=== PATIENT | male | born 1985 | race Caucasian/White ===

== ENCOUNTER → 2018-05-17 | Outpatient (CLI) | payer BC ==
--- NOTE | 2018-05-18 11:22 | RAD ---
FDG tumor localization scan, PET/CT, 05/17/2018: History: Abnormal CT Following IV injection of 14.2 mCi of 18 F-FDG, imaging was performed from the skull base to the proximal thighs. The noncontrast CT component was performed for attenuation correction and anatomic localization purposes rather than for primary diagnosis. The patient's blood glucose level at the time the exam was 101 MG/DL. No outside imaging is currently available for correlative purposes. Physiologic activity is evident in the neck. No hypermetabolic neck lesion is seen. There are 2 hypermetabolic right paratracheal lymph nodes. These both measure approximately 10 mm in short axis dimension. The maximum SUV is 7.8. There is also a small hypermetabolic subcarinal lymph node. There is a hypermetabolic focus at the right hilum demonstrate a maximum SUV of 9.5. This is probably due to a lymph node, although it cannot be from the hilar vessels on the nonopacified CT component. A tiny 8 mm nodule is identified in the region of the superior segment of the right lower lobe. The CT images are somewhat blurred by motion artifact. There is only faint FDG uptake in this region with a maximum SUV of 2.4, less than that of the mediastinal background activity. Normal GI tract and urinary tract activity is present in the abdomen and pelvis. No hypermetabolic abdominal or pelvic lesion is seen. The hepatic uptake is heterogeneous, as is often the case. Incidental CT findings include the presence of generally decreased density in the liver compatible with hepatic steatosis. IMPRESSION: 1. Mild hypermetabolic adenopathy at the right hilum and in the mediastinum. Diagnostic considerations include lymphoma, sarcoidosis, metastatic disease or an infectious etiology. 2. Tiny right lower lobe pulmonary nodule demonstrating only faint FDG uptake. The lack of demonstrable avid uptake may be due to its small size.
== END | disposition home or self-care (01) ==
LOC: PETSC 11:42
PROVIDERS: ATTEND Physician Assistant Medical
DX: R22.2 Localized swelling, mass and lump, trunk (principal)
CPT/HCPCS: 78815; A9552

== ENCOUNTER 2020-02-05 09:46 | Emergency (ER) | payer BC ==
[~2020-02-05] VITALS: Ht 185.4 cm; Wt 87.2 kg
[2020-02-05] MEDS ORDERED: guaiFENesin DM 200MG/20MG 10 ML SYRUP PO ONE (10:00)
[2020-02-05] MEDS ORDERED: BENZONATATE 100 MG CAPSULE. PO ONE (10:00)
[2020-02-05] MEDS ORDERED: DEXAMETHASONE 4 MG TABLET ONE (10:39)
--- NOTE | 2020-02-05 10:52 | EKG ---
[facility] [address] [place] [address] Test Date: 2020-02-05 Test Time: 10:03:21 Pat Name: GREG GALLEGOS Department: Room: Gender: M [employer]: : 1985 Requested By: MANUEL RODRIGUEZ Order Number: [id number] Reading MD: Measurements Intervals [place] Rate: 80 P: 41 CO: 152 QRS: 34 QRSD: 84 T: 74 QT: 348 QTc: 405 Interpretive Statements SINUS RHYTHM R-S TRANSITION ZONE IN V LEADS DISPLACED TO THE RIGHT OTHERWISE NORMAL ECG RI6.02 No previous ECG available for comparison
[2020-02-05 11:04] LABS: BASO % 0 % (0-3); EOS % 1 % (0-3); HEMATOCRIT 45.2 % (39.0-53.0); HEMOGLOBIN 15.4 g/dL (13.0-17.5); LYMPH # 1.3 x10^3/uL (1.0-4.8); LYMPH % 29 % (24-48); MEAN CORPUSCULAR HEMOGLOBIN 31 pg (25-35); MEAN CORPUSCULAR HGB CONC 34 g/dL (31-37); MEAN CORPUSCULAR VOLUME 90 fL (79-100); MONO # 0.3 x10^3/uL (0.0-1.1); MONO % 8 % (0-9); NEUT # 2.7 x10^3/uL (1.8-7.7); NEUT % 61 % (31-73); PLATELET COUNT 169 x10^3/uL (140-400); RED BLOOD COUNT 5.03 x10^6/uL (4.30-5.70); RED CELL DISTRIBUTION WIDTH 14.4 % (11.5-14.5); WHITE BLOOD COUNT 4.3 x10^3/uL (4.0-11.0)
[2020-02-05 11:06] LABS: CALCIUM 9.2 mg/dL (8.5-10.1); POTASSIUM 3.7 mmol/L (3.5-5.1)
--- NOTE | 2020-02-05 11:09 | RAD ---
EXAM: PORTABLE CHEST 1V 02/05/2020 9:46 AM CLINICAL INDICATION: Shortness of breath, Covid positive COMPARISON: Chest radiograph 03/03/2017 TECHNIQUE: AP upright view of the chest FINDINGS: The heart and mediastinum are normal. Lungs are well-expanded and clear. No consolidation, pleural effusion, or pneumothorax. Pulmonary vascularity is normal. The thoracic skeleton is intact. There is mild gaseous distention of stomach. IMPRESSION: No acute cardiopulmonary abnormality. Electronically signed by: Carrie Carrero MD (02/05/2020 11:06 AM) [id number]
[2020-02-05 11:10] LABS: ALBUMIN 3.7 g/dL (3.4-5.0); TOTAL BILIRUBIN 0.2 mg/dL (0.2-1.0); TOTAL PROTEIN 7.3 g/dL (6.4-8.2)
--- NOTE | 2020-02-05 12:08 | PHYS DOC ---
Past Medical History Past Medical History: Asthma Past Surgical History: Other Additional Past Surgical Histo: Hiatal Hernia Smoking Status: Never Smoker Alcohol Use: Occasionally General Adult EDM: Chief Complaint: COUGH HPI: HPI: 34-year-old male past medical history of asthma, presents the ED after patient was referred here by his family practice practice doctor Dr. Chavez. Patient states "I'm coughing up my lung," with sore throat, cough, myaglias, headache with a subjective fever on Monday night. Patient reports he works in a [place] and was exposed to COVID at work. Was tested Monday for covid in [place], result came back positive today. Patient states his asthma peak flows usually 450, Monday was 350 and today dropped to 90. Patient states he was unable to speak in full sentences earlier today and was having shortness of breath with exertion-states he became dizzy when walking. Pts' called Dr. Chavez who referred pt here. Not any steroids. Takes Flovent, albuterol and Singulair. No history of hospitalizations or intubations for asthma. No h/o steroids for > 1 year. Currently c/o forceful cough and dyspnea. ROS: Denies any current fever, headache, neck stiffness, leg swelling, hemoptysis, nausea, vomiting, diarrhea, back pain, abdominal pain, rash, chest pain or pressure, syncope, earache. Review of Systems: Review of Systems: Constitutional: Denies chills. [] Eyes: Denies change in visual acuity. [] HENT: Denies nasal congestion or sore throat. [] Cardiovascular: Denies chest pain or edema. [] GI: Denies abdominal pain, nausea, vomiting, bloody stools or diarrhea. [] : Denies dysuria, hematuria Musculoskeletal: Denies back pain or joint pain. [] Integument: Denies rash. [] Neurologic: Denies headache, focal weakness or sensory changes. [] Lymphatic: Denies swollen glands. [] Psychiatric: Denies depression or anxiety. [] Heart Score: Risk Factors: Risk Factors: DM, Current or recent (<one month) smoker, HTN, HLP, family hist ory of CAD, obesity. Risk Scores: Score 0 - 3: 2.5% MACE over next 6 weeks - Discharge Home Score 4 - 6: 20.3% MACE over next 6 weeks - Admit for Clinical Observation Score 7 - 10: 72.7% MACE over next 6 weeks - Early Invasive Strategies Current Medications: Current Medications Medications (Trade) Dose Ordered Sig/Hakeem Start Time Stop Time Status Last Admin Dose Admin Benzonatate (Tessalon Perle) 100 mg 1X ONCE 02/05/20 10:00 02/05/20 10:31 DC 02/05/20 10:48 100 MG Dexamethasone (Decadron) 4 mg STK-MED ONCE 02/05/20 10:39 02/05/20 10:39 DC Guaifenesin (Robitussin Dm) 10 ml 1X ONCE 02/05/20 10:00 02/05/20 10:31 DC 02/05/20 10:48 10 ML Allergies: Allergies: Allergies Coded Allergies Type Severity Reaction Last Updated Verified amoxicillin Allergy Intermediate HIVES 02/05/20 Yes Physical Exam: PE: Constitutional: Well developed, well nourished, no acute distress, non-toxic appearance, afebrile, no tachycardia HENT: Normocephalic, atraumatic, bilateral external ears normal, oropharynx moist, no oral exudates, nose normal. [] Eyes: EOMI, conjunctiva normal, no discharge. [] Neck: Normal range of motion, no tenderness, supple, no stridor. [] Cardiovascular:Heart rate regular rhythm, no murmur [] Lungs & Thorax: Bilateral breath sounds w/faint expiratory wheezing Abdomen: Bowel sounds normal, soft, no tenderness, no masses, no pulsatile masses. [] Skin: Warm, dry, no erythema, no rash. [] Back: No tenderness, no CVA tenderness. [] Extremities: No tenderness, no cyanosis, no clubbing, ROM intact, no edema. [] Neurologic: Alert and oriented X 3, normal motor function, normal sensory function, no focal deficits noted. [] Psychologic: Affect normal, judgement normal, mood normal. [] Current Patient Data: Labs: Laboratory Tests Test 02/05/20 10:40 White Blood Count 4.3 x10^3/uL (4.0-11.0) Red Blood Count 5.03 x10^6/uL (4.30-5.70) Hemoglobin 15.4 g/dL (13.0-17.5) Hematocrit 45.2 % (39.0-53.0) Mean Corpuscular Volume 90 fL (79-100) Mean Corpuscular Hemoglobin 31 pg (25-35) Mean Corpuscular Hemoglobin Concent 34 g/dL (31-37) Red Cell Distribution Width 14.4 % (11.5-14.5) Platelet Count 169 x10^3/uL (140-400) Neutrophils (%) (Auto) 61 % (31-73) Lymphocytes (%) (Auto) 29 % (24-48) Monocytes (%) (Auto) 8 % (0-9) Eosinophils (%) (Auto) 1 % (0-3) Basophils (%) (Auto) 0 % (0-3) Neutrophils # (Auto) 2.7 x10^3/uL (1.8-7.7) Lymphocytes # (Auto) 1.3 x10^3/uL (1.0-4.8) Monocytes # (Auto) 0.3 x10^3/uL (0.0-1.1) Eosinophils # (Auto) 0.0 x10^3/uL (0.0-0.7) Basophils # (Auto) 0.0 x10^3/uL (0.0-0.2) Sodium Level 142 mmol/L (136-145) Potassium Level 3.7 mmol/L (3.5-5.1) Chloride Level 107 mmol/L (98-107) Carbon Dioxide Level 27 mmol/L (21-32) Anion Gap 8 (6-14) Blood Urea Nitrogen 21 mg/dL (8-26) Creatinine 1.0 mg/dL (0.7-1.3) Estimated GFR (Cockcroft-Gault) 85.0 BUN/Creatinine Ratio 21 (6-20) H Glucose Level 89 mg/dL (70-99) Lactic Acid Level 1.8 mmol/L (0.4-2.0) Calcium Level 9.2 mg/dL (8.5-10.1) Total Bilirubin 0.2 mg/dL (0.2-1.0) Aspartate Amino Transferase (AST) 20 U/L (15-37) Alanine Aminotransferase (ALT) 44 U/L (16-63) Alkaline Phosphatase 56 U/L (46-116) Troponin I Quantitative < 0.017 ng/mL (0.000-0.055) Total Protein 7.3 g/dL (6.4-8.2) Albumin 3.7 g/dL (3.4-5.0) Albumin/Globulin Ratio 1.0 (1.0-1.7) Laboratory Tests 02/05/20 10:40 Laboratory Tests 02/05/20 10:40 Vital Signs: Vital Signs Date Time Temp Pulse Resp B/P (MAP) Pulse Ox O2 Delivery O2 Flow Rate FiO2 02/05/20 10:49 97 116/78 (91) 98 Room Air 02/05/20 09:55 98.6 18 98.6 EKG: EKG: Sinus rhythm 80 bpm, no axis deviation, normal intervals, no T wave inversions, no ST elevations or ST depressions Radiology/Procedures: Radiology/Procedures: []IMAGING REPORT Signed PATIENT: GREG GALLEGOS ACCOUNT: [id number] : 1985 LOCATION: ER AGE: 34 SEX: M EXAM STATUS: REG ER ORD. PHYSICIAN: MANUEL RODRIGUEZ DO REASON: shortness of breath - COVID POSITIVE PROCEDURE: PORTABLE CHEST 1V EXAM: PORTABLE CHEST 1V 02/05/2020 9:46 AM CLINICAL INDICATION: Shortness of breath, Covid positive COMPARISON: Chest radiograph 03/03/2017 TECHNIQUE: AP upright view of the chest FINDINGS: The heart and mediastinum are normal. Lungs are well-expanded and clear. No consolidation, pleural effusion, or pneumothorax. Pulmonary vascularity is normal. The thoracic skeleton is intact. There is mild gaseous distention of stomach. IMPRESSION: No acute cardiopulmonary abnormality. Electronically signed by: Carrie Carrero MD (02/05/2020 11:06 AM) [id number] DICTATED and SIGNED BY: CARRIE CARRERO MD DATE: 02/05/20 1106 Impression: PERC rule 0 criteria No need for further workup, as <2% chance of PE. If no criteria are positive and clinicians pre-test probability is <15%, PERC Rule criteria are satisfied. Wells criteria, 0 points Low risk group for DVT. Unlikely according to Wells DVT studies. Course & Med Decision Making: Course & Med Decision Making Pertinent Labs and Imaging studies reviewed. (See chart for details) COVID-19 CRITERIA: The patient was evaluated during the global COVID-19 pandemic, and that diagnosis was suspected/considered upon their initial presentation. Their evaluation, treatment and testing was consistent with current guidelines for patients who present with complaints or symptoms that may be related to COVID-19 Concern for shortness of breath likely related to covid with possible asthma exacerbation, significant improvement with dexamethasone in ED-pt states "the medicine really works." Pt now speaking in full sentences, saturating 9900% on room air with no respiratory distress or accessory muscle use. Patient requesting albuterol nebulizer medication - does not need refills for albuterol inhaler, Flovent or Singulair. Will prescribe 12-day steroid taper. Patient was given very strict ED return precautions for chest pain, PE, respiratory distress or strokelike symptoms-was educated on complications of COVID. Encouraged urgent outpatient follow-up with PMD and pulmonology. Life- threatening processes were considered but are low suspicion at this time, given history and physical exam. Pt was educated on all prescription medications and adverse effects. All patient's questions were answered and pt was stable at time of discharge. Differential includes ACS, dysrhythmia, pneumothorax or hemothorax, pulmonary embolus, pneumonia, bronchoconstriction, pulmonary edema, angioedema, epiglottitis, tracheitis, Petey's angina, RPA/[employer] LENS, anaphylaxis, angioedema, cardiac tamponade or murmurs, pericarditis, myocarditis, poisoning or toxicity, sepsis or autoimmune/neurologic disease. I spoken with the patient and her caregivers. I explained the patient's condition, diagnoses and treatment plan based on the information available to me at this time. I have answered the patient and her caregiver's questions and addressed any concerns. The patient and her caregivers have a good understanding of patient's diagnosis, condition and treatment plan as can be expected at this point. Vital signs have been stable. Patient's condition is stable and appropriate for discharge from the emergency department. Patient will pursue further outpatient evaluation with primary care physician or other designated or consulting physician as outlined in the discharge instructions. The patient and/or caregivers are agreeable to this plan of care and follow-up instructions have been explained in detail. The patient and/or caregivers have received these instructions in written form and have expressed an understanding of the discharge instructions. The patient and/or caregivers are aware that any significant change of condition or worsening of symptoms should prompt immediate return to this or the closest emergency department or call to [employer] [facility] Disclaimer: Jennifer Disclaimer: This electronic medical record was generated, in whole or in part, using a voice recognition dictation system. Departure Departure Impression: Primary Impression: COVID-19 Additional Impression: Asthma Disposition: 01 HOME, SELF-CARE Condition: STABLE Referrals: MANUEL PIMENTEL (PCP) Patient Instructions: Asthma, Acute Bronchospasm Additional Instructions: David Zhang MD Pulmonary Medicine in1-2 weeks [facility] Address: [address] [place] [id number] You have been tested for or diagnosed with COVID-19. It is an infection caused by a new type of coronavirus. COVID-19 will cause cold-like or mild flu symptoms in most. It can cause more severe symptoms like problems breathing in some. There is no treatment for COVID-19. The body will clear the infection over time. Self-care will help to ease discomfort. Steps to Take: Self-Care Rest as needed. Healthy habits may help you feel better. Steps include: Choose healthy foods including fruits and vegetables. Drink water throughout the day. Get plenty of sleep each night. If you smoke, try to quit. It may ease breathing. Avoid alcohol. Keep Others Healthy The virus can spread to others. Droplets are released every time you sneeze or cough. The droplets can get into the mouth, nose, or eyes of people near you and lead to infection. To lower the chances of spreading COVID-19 to others: Stay at home until your doctor has said it is safe to leave. If you tested positive this will mean staying isolated until both of the following are true: At least 7 days have passed since the start of illness. You are free of fever for at least 72 hours without the use of medicine. During this time: - Avoid public areas, events, or transportation. Do not return to work or [employer] until your doctor has said it is safe to do so. - Call ahead if you need to go to a medical center. Let them know you may have COVID-19. It will help them guide you where to go. They may also ask you to wear a facemask when you come to the office. - If you call for emergency medical services, let them know you may have COVID- 19. While at home: - Try to avoid close contact with others. Stay about 6 feet away. - If possible, spend most of your time in a separate room from others. - Use a face mask if you will be in close contact with others such as sharing a room or vehicle. - Have someone wipe down common surfaces in the home. Use household admissions rn every day on areas like doorknobs, counters, or sinks. - Cough or sneeze into a tissue. Throw the tissue away right after use. If a tissue is not available, cough or sneeze into your elbow. - Wash your hands often. Wash them after sneezing or coughing. Use soap and water and wash for at least 20 seconds. Alcohol based hand dry cleaner presser can be used if soap and water is not available. - Do not prepare food for others. Avoid sharing personal items like forks, spoons, or toothbrushes. - Avoid close contact with pets while you are sick. There is no evidence of the virus passing to pets. This is a safety step until more is known about this virus. Isolation can be frustrating. Social interaction can help. Keep in touch with friends and family through phone and tech options. You can still interact with others in your home, just keep a safe distance of about 6 feet. Follow-up: Your doctors office will check in with you to see if there are any changes in your health. You may be asked to keep track of symptoms to share with them. They will also let you know when you are clear to be in public again. Problems to Look Out For: Contact your doctor if your recovery is not going as you expect. Get emergency care if you have problems such as: - Trouble breathing - Nonstop chest pain or pressure - Changes in awareness, confusion, or problems waking - Lips or face have bluish color - Worsening of symptoms If you think you have an emergency, call for emergency medical services right away. As taken from [employer] [facility] Albuterol Sulfate (ALBUTEROL SULFATE NEB SOLN) 2.5 Mg/3 Ml Vial.neb 1 VIAL NEB Q6HRS PRN for SHORTNESS OF BREATH, #25 VIAL Prov: MANUEL RODRIGUEZ DO 02/05/20 Prednisone (PREDNISONE) 20 Mg Tablet 1 TAB PO as directed for 12 Days, #40 TAB 0 Refills Take 4 tablets daily for 4 days, then take 3 tablets daily for 4 days, then take 2 tablets daily for 4 days, then take 1 tablet daily for 4 days Prov: MANUEL RODRIGUEZ DO 02/05/20 Justicifation of Admission Dx: Justifications for Admission: Justification of Admission Dx: N/A MANUEL RODRIGUEZ DO Feb 05, 2020 12:08
[2020-02-05] MEDS ORDERED: ALBU2.5V5 NEB (13:06)
[2020-02-05] MEDS ORDERED: PRED20TA PO (13:06)
[2020-02-05 13:49] VITALS: BP 118/70
[2020-02-06] MEDS ORDERED: DEXAMETHASONE 4 MG TABLET PO SCH (08:00)
== END 2020-02-05 14:30 | disposition home or self-care (01) ==
LOC: ER 09:46
DX: U07.1 COVID-19 (principal); J45.909 Unspecified asthma, uncomplicated; R05 Cough; R51 Headache; Z98.890 Other specified postprocedural states; Z88.1 Allergy status to other antibiotic agents
CPT/HCPCS: 36415; 71045; 80053; 83605; 84484; 85025; 87040; 93005; 99285